=== PATIENT | female | born 2000 | race Two or more races ===

== ENCOUNTER 2025-01-26 20:47 | Emergency (ER) | payer OTHER ==
[~2025-01-26] VITALS: Ht 167.6 cm; Wt 93.0 kg
[2025-01-26] MEDS ORDERED: HYDROCODONE/CHLORPHEN P-STIREX 5 ML ML PO ONE (22:15)
[2025-01-26] MEDS ORDERED: ACETAMINOPHEN 500 MG GEL..CAP PO ONE ×2 (22:15→22:42)
[2025-01-26] MEDS ORDERED: METHYLPREDNISOLONE SOD SUCC 125 MG VIAL IV ONE (22:15)
[2025-01-26] MEDS ORDERED: CETIRIZINE HCL 10 MG TABLET PO ONE (22:15)
[2025-01-26] MEDS ORDERED: GUAIFEN/DEXTROMETHORPHAN/PE 10 ML BLIST.PACK PO ONE (22:43)
[2025-01-26] MEDS ORDERED: METHYLPREDNISOLONE SOD SUCC 125 MG VIAL ONE (22:43)
[2025-01-26 23:38] LABS: BASO % 1.2 % (0.1-1.2); EOS # 0.11 (0.04-0.54); EOS % 2.7 % (0.7-7.0); LYMPH # 1.45 (1.18-3.74); LYMPH % 35.0 % (19.3-53.1); MEAN PLATELET VOLUME 10.70 fl (9.4-12.4); MONO # 0.58 (0.24-0.82); NEUT # 1.94 (1.56-6.13); NEUT % 46.9 % (34.0-71.1); RED CELL DISTRIBUTION WIDTH 14.0 % (11.6-14.4)
[2025-01-26 23:41] LABS: MONO % 14.0 % (4.7-12.5)
[2025-01-27 00:15] LABS: COVID-19 AG NEGATIVE (NEGATIVE)
[2025-01-27] MEDS ORDERED: OSEL75CA PO (01:29)
[2025-01-27] MEDS ORDERED: MEDROLPACK PO (01:29)
[2025-01-27] MEDS ORDERED: MUCINEX DM ER1 EAC1 PO (01:29)
[2025-01-27] MEDS ORDERED: SINGULAIR10 MG PO (01:29)
[2025-01-27] MEDS ORDERED: IPRAT-ALBUT 0.5-3 ML IH (01:29)
== END 2025-01-27 03:17 | disposition home or self-care (01) ==
LOC: ER 20:48
PROVIDERS: General Practice
DX: B34.8 Other viral infections of unspecified site (principal); J98.8 Other specified respiratory disorders; Z20.822 Contact with and (suspected) exposure to COVID-19; Z87.09 Personal history of other diseases of the respiratory system; Z88.0 Allergy status to penicillin; Z91.013 Allergy to seafood